=== PATIENT | female | born 1960 | race Hispanic/Latino ===

== ENCOUNTER 2021-08-08 15:35 | Emergency (ER) | payer BC ==
[~2021-08-08] VITALS: Ht 167.6 cm; Wt 95.3 kg
[2021-08-08] MEDS ORDERED: IBUP-2070 PO (16:55)
[2021-08-08] MEDS ORDERED: TRAMADOL HCL 50 MG TABLET PO ONE (17:00)
[2021-08-08 17:49] VITALS: BP 152/98
== END 2021-08-08 17:48 | disposition home or self-care (01) ==
LOC: EDH 15:35
DX: M25.562 Pain in left knee (principal); I10 Essential (primary) hypertension; Z79.899 Other long term (current) drug therapy
CPT/HCPCS: 29505; 73562